=== PATIENT | male | born 1985 | race African-American/Black ===

== ENCOUNTER 2016-09-11 16:51 | Emergency (ER) | payer OTHER ==
[~2016-09-11] VITALS: Ht 182.9 cm; Wt 108.9 kg
[2016-09-11 17:09] VITALS: BP 116/72
[2016-09-11] MEDS ORDERED: Famotidine 20 MG/ 2ML VIAL IVP ONE (17:15)
[2016-09-11] MEDS ORDERED: Lidocaine 2% Visc 15ml soln ORAL ONE (17:15)
[2016-09-11] MEDS ORDERED: Dicyclomine HCl 10mg/5ml oral soln ORAL ONE (17:15)
[2016-09-11] MEDS ORDERED: Mylanta II UD 30ml ORAL ONE (17:15)
[2016-09-11 17:50] LABS: BASOPHILS % (AUTO) 1.1 % (0.0-2.0); EOSINOPHILS % (AUTO) 0.2 % (0.0-3.0); LYMPHOCYTES % (AUTO) 16.4 % (20.0-45.0); MEAN CORPUSCULAR HEMOGLOBIN 31.7 PG (27.0-31.0); MEAN CORPUSCULAR HGB CONC 34.6 G/DL (32.0-36.0); MEAN CORPUSCULAR VOLUME 92 FL (80-99); MEAN PLATELET VOLUME 6.3 FL (6.5-10.1); MONOCYTES % (AUTO) 3.8 % (1.0-10.0); NEUTROPHILS % (AUTO) 78.6 % (45.0-75.0); PLATELET COUNT 245 K/UL (150-450); RED BLOOD COUNT 5.04 M/UL (4.70-6.10); RED CELL DISTRIBUTION WIDTH 11.8 % (11.6-14.8); WHITE BLOOD COUNT 5.5 K/UL (4.8-10.8)
[2016-09-11 18:03] LABS: ALANINE AMINOTRANSFERASE 35 U/L (3-41); ALBUMIN/GLOBULIN RATIO 1.4 (1.0-2.7); ANION GAP 17 (5-15); ASPARTATE AMINO TRANSFERASE 42 U/L (5-40); CALCIUM 9.2 mg/dL (8.6-10.2); CARBON DIOXIDE 23 mEQ/L (20-30); CHLORIDE 95 mEQ/L (98-107); GLOMERULAR FILTRATION RATE > 60 mL/min (>60); HEMOLYSIS 6; LIPASE 15 U/L (< 60); POTASSIUM 3.6 mEQ/L (3.4-4.9); SODIUM 135 mEQ/L (135-145); TOTAL PROTEIN 7.2 g/dL (6.6-8.7)
[2016-09-11 18:35] VITALS: BP 116/78
[2016-09-11] MEDS ORDERED: ZOFRAN ODT4 MG ORAL (18:38)
[2016-09-11] MEDS ORDERED: BENTYL10 MG ORAL (18:38)
[2016-09-11] MEDS ORDERED: RANITIDINE HCL150 MG ORAL (18:38)
--- NOTE | 2016-09-11 19:34 | Emergency Room Report ---
History of Present Illness General Chief Complaint: Abdominal Pain Source: Patient Present Illness HPI 31-year-old male presents ED for evaluation of vomiting and diarrhea x2 days. States multiple family members in his house have similar presentation. Cramping abdominal pain, 5/10, nonradiating. Multiple episodes of vomiting and watery diarrhea. Denies fevers or chills. Denies recent travel. Denies recent antibiotic use. No other aggravating relieving factors. Denies any other associated symptom Allergies: Coded Allergies: PENICILLINS (Verified Allergy, Severe, Itching, 09/11/16) Patient History Past Medical History: none Past Surgical History: none Pertinent Family History: none Social History: Denies: alcohol use, drug use, smoking Immunizations: UTD Reviewed Nursing Documentation: PMH: Agreed, PSxH: Agreed Nursing Documentation-PMH Past Medical History: No Stated History Review of Systems All Other Systems: negative except mentioned in HPI Physical Exam Vital Signs Date Time Temp Pulse Resp B/P Pulse Ox O2 Delivery O2 Flow Rate FiO2 09/11/16 16:55 97.7 74 18 116/72 98 Room Air Sp02 EP Interpretation: reviewed, normal General Appearance: no apparent distress, alert, GCS 15, non-toxic Head: normocephalic, atraumatic Eyes: bilateral eye PERRL, bilateral eye normal inspection ENT: hearing grossly normal, normal pharynx, no angioedema, normal voice Neck: full range of motion, supple/symm/no masses Respiratory: chest non-tender, lungs clear, normal breath sounds, speaking full sentences Cardiovascular #1: regular rate, rhythm, no edema Cardiovascular #2: 2+ carotid (R), 2+ carotid (L), 2+ radial (R), 2+ radial (L) , 2+ dorsalis pedis (R), 2+ dorsalis pedis (L) Gastrointestinal: normal bowel sounds, soft, non-distended, no guarding, no rebound, tenderness - periumbilical Rectal: deferred Genitourinary: normal inspection, no CVA tenderness Musculoskeletal: back normal, gait/station normal, normal range of motion, non- tender Neurologic: alert, oriented x3, responsive, motor strength/tone normal, sensory intact, speech normal Psychiatric: judgement/insight normal, memory normal, mood/affect normal, no suicidal/homicidal ideation Reflexes: 3+ bicep (R), 3+ bicep (L), 3+ tricep (R), 3+ tricep (L), 3+ knee (R) , 3+ knee (L) Skin: normal color, no rash, warm/dry, well hydrated Lymphatic: no adenopathy Medical Decision Making Diagnostic Impression: Primary Impression: Gastroenteritis ER Course Hospital Course 31-year-old M presents to ED with cramping abdominal pain with vomiting, diarrhea differential diagnosis: gastritis, SBO, cholecystits, gastroenteritis Clinical course Patient placed on stretcher. On cardiac nurse specialist. After initial history and physical I ordered labs, IV fluids, Zofran and pepcid Labs - no leukocytosis, electrolytes ok, LFTs normal, UA unremarkable Upon reassessment, patient states pain has improved. findings consistent with gastroenteritis I feel this is a highly complex case requiring extensive working including EKG/ Rhythm strip, Xray/CT/US, Blood/urine lab work, repeat exams while in ED, and administration of strong opiates/narcotics for pain control, admission to hospital or close patient follow up. Diagnosis - gastroenteritis Stable and discharged to home with prescriptions for Zantac, zofran, bentyl. Followup with PMD. Return to ED if symptoms recur or worsen Labs Test 09/11/16 17:20 White Blood Count 5.5 K/UL (4.8-10.8) Red Blood Count 5.04 M/UL (4.70-6.10) Hemoglobin 16.0 G/DL (14.2-18.0) Hematocrit 46.2 % (42.0-52.0) Mean Corpuscular Volume 92 FL (80-99) Mean Corpuscular Hemoglobin 31.7 PG (27.0-31.0) Mean Corpuscular Hemoglobin Concent 34.6 G/DL (32.0-36.0) Red Cell Distribution Width 11.8 % (11.6-14.8) Platelet Count 245 K/UL (150-450) Mean Platelet Volume 6.3 FL (6.5-10.1) Neutrophils (%) (Auto) 78.6 % (45.0-75.0) Lymphocytes (%) (Auto) 16.4 % (20.0-45.0) Monocytes (%) (Auto) 3.8 % (1.0-10.0) Eosinophils (%) (Auto) 0.2 % (0.0-3.0) Basophils (%) (Auto) 1.1 % (0.0-2.0) Sodium Level 135 mEQ/L (135-145) Potassium Level 3.6 mEQ/L (3.4-4.9) Chloride Level 95 mEQ/L (98-107) Carbon Dioxide Level 23 mEQ/L (20-30) Anion Gap 17 (5-15) Blood Urea Nitrogen 7 mg/dL (7-23) Creatinine 1.0 mg/dL (0.7-1.2) Estimat Glomerular Filtration Rate > 60 mL/min (>60) Glucose Level 96 mg/dL (74-106) Calcium Level 9.2 mg/dL (8.6-10.2) Total Bilirubin 0.8 mg/dL (0.0-1.2) Aspartate Amino Transf (AST/SGOT) 42 U/L (5-40) Alanine Aminotransferase (ALT/SGPT) 35 U/L (3-41) Alkaline Phosphatase 53 U/L (40-129) Total Protein 7.2 g/dL (6.6-8.7) Albumin 4.2 g/dL (3.5-5.2) Globulin 3.0 g/dL Albumin/Globulin Ratio 1.4 (1.0-2.7) Lipase 15 U/L (< 60) Last Vital Signs Date Time Temp Pulse Resp B/P Pulse Ox O2 Delivery O2 Flow Rate FiO2 09/11/16 18:35 97.7 18 116/78 98 Room Air 09/11/16 16:55 74 Status: improved Disposition: HOME, SELF-CARE Condition: Stable Scripts Dicyclomine Hcl* (BENTYL*) 10 Mg Capsule 10 MG ORAL FOUR TIMES A DAY, #20 CAP Prov: TEDDY ARELLANO M.D. 09/11/16 Ondansetron Odt* (ZOFRAN ODT*) 4 Mg Tab.rapdis 4 MG ORAL Q6H Y for Nausea & Vomiting, #30 TAB 0 Refills Prov: TEDDY ARELLANO M.D. 09/11/16 Ranitidine Hcl* (ZANTAC*) 150 Mg Tablet 150 MG ORAL TWICE A DAY, #30 TAB Prov: TEDDY ARELLANO M.D. 09/11/16 Patient Instructions: Viral Gastroenteritis, Adult TEDDY ARELLANO M.D. Sep 11, 2016 19:34
== END 2016-09-11 18:47 | disposition home or self-care (01) ==
LOC: EMR 17:15
DX: K52.9 Noninfective gastroenteritis and colitis, unspecified (principal); Z88.0 Allergy status to penicillin
CPT/HCPCS: 36415; 80053; 83690; 85025; 96374; 96375; 99284; J2405; S0028

== ENCOUNTER 2019-02-24 20:14 | Emergency (ER) | payer OTHER ==
[~2019-02-24] VITALS: Ht 182.9 cm; Wt 107.5 kg
[~2019-02-24 20:14] MED LIST: BENTYL10 MG ORAL; RANITIDINE HCL150 MG ORAL; ZOFRAN ODT4 MG ORAL
[2019-02-24 20:23] VITALS: BP 115/77
--- NOTE | 2019-02-24 20:25 | NUR ---
ED Nurse Note: Patient walked in to ER c/o spider bite. Stated that noticed it today. AAO x4, VSS at this time.
[2019-02-24] MEDS ORDERED: Bactrim-DS 1 tab ORAL ONE (20:30)
--- NOTE | 2019-02-24 20:32 | Emergency Room Report ---
History of Present Illness General Chief Complaint: Animal Bite Source: Patient Present Illness HPI 34-year-old male with no significant past medical history is complaining of pain and swelling in the right flank due to a possible spider bite x2 days. Patient denies camping, and being into the [place]. Reports having minimal pain in the round fluid-filled lesion on the right axillary/flank. It is now filled with pus and is eliciting 5 out of 10 pain. However still in the form of the cyst and does not need to be drained. Denies fever and chills, shortness of breath, chest pain, palpitation, nausea vomiting. Patient is up-to-date with tetanus shot, has not taken medication for symptom relief other than taking a chocolate bath. Patient reports that he". Complains of minimal pruritus. Denies other associated symptoms. Allergies: Coded Allergies: PENICILLINS (Verified Allergy, Severe, Itching, 09/11/16) Patient History Past Medical History: see triage record Past Surgical History: unable to obtain Pertinent Family History: none Immunizations: UTD Reviewed Nursing Documentation: PMH: Agreed; PSxH: Agreed Nursing Documentation-PMH Past Medical History: No Stated History Review of Systems All Other Systems: negative except mentioned in HPI Physical Exam Vital Signs Date Time Temp Pulse Resp B/P (MAP) Pulse Ox O2 Delivery O2 Flow Rate FiO2 02/24/19 20:17 97.7 66 17 115/77 (90) 96 Room Air Sp02 EP Interpretation: reviewed, normal General Appearance: no apparent distress, alert, GCS 15, non-toxic Head: normocephalic, atraumatic Eyes: bilateral eye normal inspection, bilateral eye PERRL ENT: hearing grossly normal, normal pharynx, no angioedema, normal voice Neck: full range of motion, supple, supple/symm/no masses Respiratory: chest non-tender, lungs clear, normal breath sounds, no rhonchi, no wheezing, speaking full sentences Cardiovascular #1: regular rate, rhythm, no edema, no murmur, no rub Gastrointestinal: normal bowel sounds, non tender, soft, non-distended, no guarding, no rebound Musculoskeletal: back normal, digits/nails normal, gait/station normal, no calf tenderness Neurologic: alert, oriented x3, responsive, motor strength/tone normal, sensory intact, speech normal Psychiatric: judgement/insight normal, memory normal, mood/affect normal, no suicidal/homicidal ideation Skin: other - cyst right axillla/flank secondary to insect bite, infected, no pus drainage Lymphatic: normal inspection, axilla node tender (R) Medical Decision Making ETIENNE Attestation All my diagnosis and treatment plans were reviewed ad discussed with my supervising physician Dr. Jin Diagnostic Impression: Primary Impression: Insect bite, infected ER Course 34-year-old male with no significant past medical history is complaining of pain and swelling in the right flank due to a possible spider bite x2 days. Patient denies camping, and being into the [place]. Reports having minimal pain in the round fluid-filled lesion on the right axillary/flank. It is now filled with pus and is eliciting 5 out of 10 pain. However still in the form of the cyst and does not need to be drained. Denies fever and chills, shortness of breath, chest pain, palpitation, nausea vomiting. Patient is up-to-date with tetanus shot, has not taken medication for symptom relief other than taking a chocolate bath. Patient reports that he". Complains of minimal pruritus. Denies other associated symptoms. Ddx considered but are not limited to : Cellulitis, infected insect bite, noninfected insect bite, superficial infection, abscess Vital signs: are WNL, pt. is afebrile H&PE are most consistent with: Infected insect bite turned into the cyst ORDERS: Bactrim DS, hydrocortisone cream, Benadryl ED INTERVENTIONS: bactrim DS DISCHARGE: At this time pt. is stable for d/c to home. Will provide printed patient care instructions, and any necessary prescriptions. Care plan and follow up instructions have been discussed with the patient prior to discharge. Take medication as directed follow-up with your primary care provider worsening symptoms return to the emergency room Last Vital Signs Date Time Temp Pulse Resp B/P (MAP) Pulse Ox O2 Delivery O2 Flow Rate FiO2 02/24/19 20:23 97.7 17 115/77 96 Room Air 02/24/19 20:17 66 Disposition: HOME, SELF-CARE Condition: Stable Scripts Diphenhydramine HCl (Benadryl) 25 Mg Capsule 25 MG PO BID, #20 CAP Prov: Marco Townsend 02/24/19 Hydrocortisone/Aloe Vera 1%* (HYDROCORTISONE-ALOE 1% CREAM*) Y Cr 1 APPLIC TOPIC Q6H PRN for Itching, #30 GM Prov: Marco Townsend 02/24/19 Trimethoprim/Sulfamethoxazole 160/800* (BACTRIM DS TABLET*) 1 Each Tablet 1 TAB ORAL TWICE A DAY for 7 Days, #14 TAB Prov: Marco Townsend 02/24/19 Patient Instructions: Insect Bite, [id number] Additional Instructions: Take medication as directed follow-up with your primary care provider if worsening symptoms return to the emergency room Marco Townsend Feb 24, 2019 20:32
[2019-02-24] MEDS ORDERED: HYDROCORTISONE-30 GM TOPIC (20:36)
[2019-02-24] MEDS ORDERED: BENADRYL25 M3 PO (20:36)
[2019-02-24] MEDS ORDERED: BACTRIM DS TAB1 EAC1 ORAL (20:36)
[2019-02-24 20:43] VITALS: BP 115/77
--- NOTE | 2019-02-24 20:44 | NUR ---
ED Nurse Note: Pt cleared by health care Provider for discharge. DC instructions/prescription was given and explained to pt and verbalized understanding of teachings. All medical deviecs such as ID band removed. Pt is AAO x4, ambulatory and left with all personal belongings.
== END 2019-02-24 21:00 | disposition home or self-care (01) ==
LOC: EMR 20:49
DX: S30.861A Insect bite (nonvenomous) of abdominal wall, initial encounter (principal); L08.9 Local infection of the skin and subcutaneous tissue, unspecified; Z88.0 Allergy status to penicillin; W57.XXXA Bitten or stung by nonvenomous insect and other nonvenomous arthropods, initial encounter; Y92.9 Unspecified place or not applicable
CPT/HCPCS: 99282